=== PATIENT | female | born 1970 | race Asian ===

== ENCOUNTER → 2017-11-02 | Outpatient (CLI) | payer BC ==
--- NOTE | 2017-11-03 08:29 | RADIOLOGY IMAGING REPORT ---
FACILITY: [facility] [place] PATIENT NAME: PARMINDER GRACE : [id number] MR: [id number] V: [id number] EXAM DATE: ORDERING PHYSICIAN: ROSENDO ESPITIA TECHNOLOGIST: Nely Moran PROCEDURE:BILATERAL DIGITAL SCREENING MAMMOGRAM WITH CAD ASSISTED INTERPRETATION AND 3D BREAST TOMOSYNTHESIS. COMPARISON:None. This is the patient's baseline mammogram. INDICATIONS:BASELINE FINDINGS: Moderately heterogeneous fibroglandular tissue is seen throughout the breasts. The parenchymal pattern has remained stable when allowing for difference in mammographic technique and patient positioning. There is no evidence of malignant appearing mass, malignant appearing calcification or other secondary sign of malignancy in either breast. DIAGNOSTIC CATEGORY 2--BENIGN FINDING. RECOMMENDATIONS: ROUTINE MAMMOGRAM AND CLINICAL EVALUATION. IMPRESSION: Bi-RADS 2: No significant abnormality is seen. Images were reviewed with R2CAD and 3D breast tomosynthesis. Dictated by: Elizabeth Barnett M.D. on 11/02/2017 at 16:36 Transcribed by: MARCIANO on 11/02/2017 at 18:06 Approved by: Elizabeth Barnett M.D. on 11/03/2017 at 8:28 [facility]
== END ==
LOC: MAMO 08:29
PROVIDERS: ATTEND Obstetrics & Gynecology
DX: Z12.31 Encounter for screening mammogram for malignant neoplasm of breast (principal)
CPT/HCPCS: 77063; 77067